=== PATIENT | male | born 1955 | race Hispanic/Latino ===

== ENCOUNTER 2021-02-13 07:22 | Day surgery (SDC) | payer MEDICARE ==
[2021-02-07 10:38] LABS: BASOPHILS % (AUTO) 0.4 % (0.0-5.0); EOSINOPHILS % (AUTO) 2.6 % (0.0-8.0); HEMATOCRIT 33.4 % (42-54); LYMPHOCYTES % (AUTO) 17.4 % (21.0-51.0); MEAN CORPUSCULAR HEMOGLOBIN 30.2 pg (27.0-33.0); MEAN CORPUSCULAR HGB CONC 32.6 g/dL (32.0-36.0); MEAN CORPUSCULAR VOLUME 92.5 fL (79-99); MONOCYTES % (AUTO) 7.5 % (3.0-13.0); NEUTROPHILS % (AUTO) 71.8 % (40.0-77.0); PLATELET COUNT (AUTO) 274 K/uL (130-400); RED BLOOD CELL COUNT(AUTO) 3.61 MIL/uL (4.50-6.20); RED CELL DISTRIBUTION WIDTH 12.9 % (11.0-15.5); WHITE BLOOD COUNT (AUTO) 7.3 K/uL (4.8-10.8)
[2021-02-07 10:39] LABS: APPEARANCE,URINE Cloudy (CLEAR); BILIRUBIN,URINE Negative (NEGATIVE); COLOR,URINE Yellow (YELLOW); GLUCOSE, URINE (UA) Negative (NEGATIVE); KETONES,URINE Negative (NEGATIVE); LEUKOCYTE ESTERASE ,URINE Large (NEGATIVE); NITRATE,URINE Positive (NEGATIVE); OCCULT BLOOD,URINE Trace (NEGATIVE); PH,URINE 6.5 (5.0-8.0); PROTEIN,URINE Trace mg/dL (NEGATIVE); UROBILINOGEN,URINE 0.2 mg/dL (0.2-1.0)
[2021-02-07 10:46] LABS: BACTERIA,URINE Many /HPF (None Seen); RBC,URINE 0-1 /HPF (0-1); WBC,URINE 26-50 /HPF (0-1)
[2021-02-07 10:47] LABS: CREATININE 1.7 mg/dL (0.5-1.5); POTASSIUM 4.6 mmol/L (3.5-5.1); SQUAMOUS EPITHELIAL CELL,UR None Seen /HPF (0-2)
[2021-02-07 10:51] LABS: INR 1.01 (0.85-1.15)
[2021-02-07 10:52] LABS: PARTIAL THROMBOPLASTIN TIME 29.1 SEC (26.3-35.5)
[2021-02-12 14:07] VITALS: BP 173/80
[~2021-02-13] VITALS: Ht 175.3 cm; Wt 89.6 kg
[2021-02-13] VITALS (15 sets, daily range): BP systolic 131–162; BP diastolic 67–84
[~2021-02-13 07:22] MED LIST: ATOR40TA71 PO; FERR325T22 PO; FINA5TAB41 PO; LEVAQUIN PO; LEVO50CA4 PO; PANT40TA54 PO; SACU1TAB7 PO
[2021-02-13] MEDS ORDERED: LIDOCAINE PF 2% 5ML ABBOJECT ONE (07:52)
[2021-02-13] MEDS ORDERED: PROPOFOL 10 MG/ML 20ML VIAL IV ONE (07:52)
[2021-02-13] MEDS ORDERED: FENTANYL CITRATE PF 50 MCG/1 ML 2ML VIAL ONE (07:52)
[2021-02-13] MEDS ORDERED: LACTATED RINGERS 1000ML 1,000 ML IV ONE (07:58)
[2021-02-13] MEDS ORDERED: CEFTRIAXONE SODIUM 1 GM IVP ONE (08:00)
[2021-02-13] MEDS ORDERED: GENTAMICIN 80 MG/NS 100 ML PB 100 ML IV PRN (08:00)
[2021-02-13] MEDS ORDERED: CLOP75TA14 PO (08:31)
[2021-02-13] MEDS ORDERED: AEC81 PO (08:31)
== END 2021-02-13 11:50 | disposition home or self-care (01) ==
LOC: DAH 07:22
PROVIDERS: ATTEND Urology
DX: N32.0 Bladder-neck obstruction (principal); Z20.822 Contact with and (suspected) exposure to COVID-19; N40.1 Benign prostatic hyperplasia with lower urinary tract symptoms; N13.8 Other obstructive and reflux uropathy; R33.8 Other retention of urine; R35.1 Nocturia; I10 Essential (primary) hypertension; E78.5 Hyperlipidemia, unspecified; E03.9 Hypothyroidism, unspecified; I25.2 Old myocardial infarction; Z79.01 Long term (current) use of anticoagulants; Z95.1 Presence of aortocoronary bypass graft; Z98.890 Other specified postprocedural states; Z87.891 Personal history of nicotine dependence; Z79.82 Long term (current) use of aspirin
CPT/HCPCS: 36415; 52640; 71045; 80048; 81001; 85025; 85610; 85730; 87077; 87088; 87186; 93005; A4215; A4221; A4222; A4223; A4344; A4354; A4358; A4600; A4663; A5113; A6260; C1769; C9803; J0696; J2001; J2704; J3010; J7120 ×2; U0003; J1580